=== PATIENT | male | born 1935 | race Caucasian/White ===

== ENCOUNTER 2018-02-08 07:57 | Outpatient (CLI) | payer MEDICARE ==
[2018-02-08 10:46] LABS: BASOPHILS % (AUTO) 0.3 %; EOSINOPHILS # (AUTO) 0.2 10^3/uL (0.0-0.7); EOSINOPHILS % (AUTO) 2.6 %; HGB - HEMOGLOBIN 14.4 g/dL (14.0-18.0); LYMPHOCYTES # (AUTO) 2.3 10^3/uL (1.5-3.5); LYMPHOCYTES % (AUTO) 37.9 %; MEAN CORPUSCULAR HEMOGLOBIN 31.8 pg (27.0-31.0); MEAN CORPUSCULAR HGB CONC 34.8 g/dL (32.0-36.0); MEAN CORPUSCULAR VOLUME 91.4 fL (80.0-94.0); MEAN PLATELET VOLUME 7.6 fL (7.4-11.4); MONOCYTES # (AUTO) 0.4 10^3/uL (0.0-1.0); MONOCYTES % (AUTO) 6.9 %; NEUTROPHILS # (AUTO) 3.2 10^3/uL (1.5-6.6); NEUTROPHILS % (AUTO) 52.3 %; PLT - PLATELET COUNT 169 10^3/uL (130-450); RED BLOOD COUNT 4.53 10^6/uL (4.70-6.10)
[2018-02-08 11:00] LABS: ALBUMIN 4.1 g/dL (3.2-5.5); ALBUMIN/GLOBULIN RATIO 1.3 (1.0-2.2); ALKALINE PHOSPHATASE 65 IU/L (42-121); ALT ALANINE AMINOTRANSFERASE 22 IU/L (10-60); AST ASPARTATE AMINOTRANSFERASE 26 IU/L (10-42); BILIRUBIN,TOTAL 1.1 mg/dL (0.2-1.0); BUN - BLOOD UREA NITROGEN 26 mg/dL (6-20); CALCIUM 9.2 mg/dL (8.5-10.3); CARBON DIOXIDE - CO2 26 mmol/L (21-32); CHLORIDE 103 mmol/L (101-111); CHOLESTEROL 122 mg/dL; GFR - MDRD 72 (>89); GLUCOSE 96 mg/dL (70-100); HDL CHOLESTEROL 41 mg/dL; LDL CHOLESTEROL,CALCULATED 69 mg/dL; LDL/HDL RATIO 1.7 (<3.6); SODIUM 136 mmol/L (135-145); TOTAL PROTEIN 7.3 g/dL (6.7-8.2); VLDL CHOLESTEROL 12 mg/dL
== END 2018-02-08 07:58 | disposition home or self-care (01) ==
LOC: LAB.F 07:57
PROVIDERS: ATTEND Family Medicine
DX: I25.10 Atherosclerotic heart disease of native coronary artery without angina pectoris (principal)
CPT/HCPCS: 36415; 80053; 80061; 83721; 84443; 85025

== ENCOUNTER 2019-02-23 08:11 | Outpatient (CLI) | payer MEDICARE ==
[2019-02-23 11:07] LABS: ALBUMIN 3.9 g/dL (3.2-5.5); ALBUMIN/GLOBULIN RATIO 1.2 (1.0-2.2); ALKALINE PHOSPHATASE 72 IU/L (42-121); ALT ALANINE AMINOTRANSFERASE 24 IU/L (10-60); AST ASPARTATE AMINOTRANSFERASE 28 IU/L (10-42); BILIRUBIN,TOTAL 0.9 mg/dL (0.2-1.0); BUN - BLOOD UREA NITROGEN 29 mg/dL (6-20); CALCIUM 9.3 mg/dL (8.5-10.3); CARBON DIOXIDE - CO2 29 mmol/L (21-32); CHLORIDE 105 mmol/L (101-111); CHOL/HDL RATIO 2.7 (<5.0); CHOLESTEROL 115 mg/dL; GFR - MDRD 71 (>89); GLUCOSE 105 mg/dL (70-100); HDL CHOLESTEROL 42 mg/dL; SODIUM 140 mmol/L (135-145); TOTAL PROTEIN 7.1 g/dL (6.7-8.2)
[2019-02-23 11:20] LABS: BASOPHILS % (AUTO) 0.3 %; EOSINOPHILS # (AUTO) 0.1 10^3/uL (0.0-0.7); EOSINOPHILS % (AUTO) 2.3 %; HGB - HEMOGLOBIN 13.9 g/dL (14.0-18.0); LYMPHOCYTES # (AUTO) 1.8 10^3/uL (1.5-3.5); LYMPHOCYTES % (AUTO) 34.9 %; MEAN CORPUSCULAR HEMOGLOBIN 31.7 pg (27.0-31.0); MEAN CORPUSCULAR HGB CONC 33.9 g/dL (32.0-36.0); MEAN CORPUSCULAR VOLUME 93.5 fL (80.0-94.0); MEAN PLATELET VOLUME 8.1 fL (7.4-11.4); MONOCYTES # (AUTO) 0.3 10^3/uL (0.0-1.0); MONOCYTES % (AUTO) 6.4 %; NEUTROPHILS # (AUTO) 2.9 10^3/uL (1.5-6.6); NEUTROPHILS % (AUTO) 56.1 %; PLT - PLATELET COUNT 180 10^3/uL (130-450); RED BLOOD COUNT 4.38 10^6/uL (4.70-6.10); WHITE BLOOD COUNT 5.2 x10^3/uL (4.8-10.8)
[2019-02-23 11:34] LABS: LDL CHOLESTEROL,DIRECT 66 mg/dL; LDLD/HDL RATIO 1.6 (<3.6)
== END 2019-02-23 08:12 | disposition home or self-care (01) ==
LOC: LAB.F 08:11
PROVIDERS: ATTEND Family Medicine
DX: I25.10 Atherosclerotic heart disease of native coronary artery without angina pectoris (principal)
CPT/HCPCS: 36415; 80053; 80061; 83721; 84443; 85025

== ENCOUNTER 2019-03-04 10:52 | Outpatient (CLI) | payer MEDICARE | END 2019-03-04 10:53 | disposition home or self-care (01) | LOC: LAB.F 10:52 | PROVIDERS: ATTEND Family Medicine | DX: G25.9 Extrapyramidal and movement disorder, unspecified (principal) | CPT/HCPCS: 36415; 82607; 83921 ==

== ENCOUNTER 2019-04-18 07:48 | Outpatient (CLI) | payer MEDICARE | END 2019-04-18 07:49 | disposition home or self-care (01) | LOC: LAB.F 07:48 | PROVIDERS: ATTEND Family Medicine | DX: E53.8 Deficiency of other specified B group vitamins (principal) | CPT/HCPCS: 36415; 82607 ==

== ENCOUNTER 2019-08-11 09:04 | Day surgery (SDC) | payer MEDICARE ==
[2019-08-11] MEDS ORDERED: LACTATED RINGERS 1,000 ML IV ONE (09:37)
[2019-08-11] MEDS ORDERED: fentaNYL 100 MCG/2 ML VIAL IVP ONE (10:10)
[2019-08-11] MEDS ORDERED: MIDAZOLAM 2 MG/2 ML VIAL IVP ONE (10:10)
[2019-08-11 10:51] VITALS: BP 105/59
== END 2019-08-11 09:05 | disposition home or self-care (01) ==
LOC: SDS 09:04
PROVIDERS: ATTEND Surgery
PROC: 0DJD8ZZ Inspection of Lower Intestinal Tract, Via Natural or Artificial Opening Endoscopic (ICD-10-PCS; principal; 2019-08-11 10:30)
DX: Z12.11 Encounter for screening for malignant neoplasm of colon (principal); Z86.010 Personal history of colon polyps; Z80.0 Family history of malignant neoplasm of digestive organs; K64.8 Other hemorrhoids; I10 Essential (primary) hypertension; E66.9 Obesity, unspecified; Z79.899 Other long term (current) drug therapy; Z80.3 Family history of malignant neoplasm of breast; Z87.891 Personal history of nicotine dependence; Z68.34 Body mass index [BMI] 34.0-34.9, adult
CPT/HCPCS: G0105; J7120

== ENCOUNTER 2019-09-04 05:12 | Emergency (ER) | payer MEDICARE ==
[2019-09-04] MEDS ORDERED: ACETAMINOPHEN 325 MG TABLET PO STA (05:37)
[2019-09-04 05:54] VITALS: BP 147/74
[2019-09-04 06:02] LABS: BASOPHILS % (AUTO) 0.2 %; EOSINOPHILS # (AUTO) 0.1 10^3/uL (0.0-0.7); EOSINOPHILS % (AUTO) 1.3 %; HGB - HEMOGLOBIN 13.5 g/dL (14.0-18.0); LYMPHOCYTES # (AUTO) 1.8 10^3/uL (1.5-3.5); LYMPHOCYTES % (AUTO) 33.7 %; MEAN CORPUSCULAR HEMOGLOBIN 31.6 pg (27.0-31.0); MEAN CORPUSCULAR HGB CONC 33.5 g/dL (32.0-36.0); MEAN CORPUSCULAR VOLUME 94.4 fL (80.0-94.0); MEAN PLATELET VOLUME 9.1 fL (7.4-11.4); MONOCYTES # (AUTO) 0.4 10^3/uL (0.0-1.0); NEUTROPHILS # (AUTO) 3.2 10^3/uL (1.5-6.6); NEUTROPHILS % (AUTO) 57.6 %; PLT - PLATELET COUNT 171 10^3/uL (130-450); RED BLOOD COUNT 4.27 10^6/uL (4.70-6.10); RED CELL DISTRIBUTION WIDTH 12.3 % (12.0-15.0); WHITE BLOOD COUNT 5.5 x10^3/uL (4.8-10.8)
[2019-09-04 06:05] LABS: BILIRUBIN,URINE NEGATIVE (NEGATIVE); GLUCOSE, URINE (UA) NEGATIVE (NEGATIVE); KETONES,URINE (UA) NEGATIVE (NEGATIVE); LEUKOCYTE ESTERASE, URINE NEGATIVE (NEGATIVE); NITRITE,URINE NEGATIVE (NEGATIVE); OCCULT BLOOD,URINE NEGATIVE (NEGATIVE); PH,URINE 5.5 PH (5.0-7.5); PROTEIN,URINE NEGATIVE (NEGATIVE); UROBILINOGEN,URINE 0.2 (NORMAL) E.U./dL (NORMAL)
[2019-09-04 06:06] LABS: CLARITY,URINE CLEAR (CLEAR)
[2019-09-04 06:12] LABS: ALBUMIN 3.9 g/dL (3.2-5.5); ALBUMIN/GLOBULIN RATIO 1.2 (1.0-2.2); BILIRUBIN,TOTAL 0.9 mg/dL (0.2-1.0); CALCIUM 9.2 mg/dL (8.5-10.3); CREATININE 0.9 mg/dL (0.6-1.2); TOTAL PROTEIN 7.1 g/dL (6.7-8.2)
--- NOTE | 2019-09-04 06:33 | ED Physician Documentation ---
History of Present Illness - Stated complaint Stated Complaint: LEFT SIDE ADB PX - Chief complaint Chief Complaint: Trauma Ext - History obtained from History obtained from: Patient, Family - History of Present Illness Timing: How many days ago (5) Pain level max: 5 Pain level now: 0 - Additonal information Additional information: 84-year-old male presents to the emergency department stating that his right leg has been stiff. Complaining of pain to the left hip. Worse with movement and better with rest. Especially bad with twisting. No trauma or falls. Review of Systems Constitutional: denies: Fever, Chills Throat: denies: Sore throat Cardiac: denies: Chest pain / pressure Respiratory: denies: Cough GI: denies: Abdominal Pain, Nausea, Vomiting, Diarrhea Skin: denies: Rash Musculoskeletal: denies: Neck pain Neurologic: denies: Headache PD PAST MEDICAL HISTORY - Past Medical History Cardiovascular: Hypertension Respiratory: None Endocrine/Autoimmune: None GI: None, Colon polyps : None HEENT: None Psych: None Musculoskeletal: None Derm: None - Past Surgical History General: Colonoscopy - Present Medications Home Medications: Ambulatory Orders Medication Instructions Recorded Confirmed Aspirin [Low Dose Aspirin EC] 81 mg PO 06/27/13 06/27/13 Losartan [Cozaar] 100 mg PO DAILY 06/27/13 06/27/13 Atorvastatin [Lipitor] 0 mg 08/11/19 - Allergies Allergies/Adverse Reactions: Allergies Allergy/AdvReac Type Severity Reaction Status Date / Time No Known Drug Allergies Allergy Verified 06/27/13 16:03 PD ED PE NORMAL - Vitals Vital signs reviewed: Yes - General General: Alert and oriented X 3, No acute distress - HEENT HEENT: Moist mucous membranes - Neck Neck: Supple, no meningeal sign - Cardiac Cardiac: RRR - Respiratory Respiratory: No respiratory distress, Clear bilaterally - Abdomen Abdomen: Soft, Non tender, Non distended - Back Back: No spinal TTP, Other (No midline tenderness to palpation or percussion. No step-off or deformity. Tender to palpation over left low lumbar. Paraspinal.) - Derm Derm: Warm and dry - Neuro Neuro: Alert and oriented X 3 Results - Vitals Vitals: Vital Signs - 24 hr 09/04/19 09/04/19 05:22 05:52 Temperature 36.6 C Heart Rate 72 70 Respiratory 15 15 Rate Blood Pressure 163/74 H 147/74 H O2 Saturation 98 97 Oxygen O2 Source Room air - Labs Labs: Laboratory Tests 09/04/19 09/04/19 09/04/19 05:50 05:50 06:00 WBC 5.5 RBC 4.27 L Hgb 13.5 L Hct 40.3 L MCV 94.4 H MCH 31.6 H MCHC 33.5 RDW 12.3 Plt Count 171 MPV 9.1 Neut # (Auto) 3.2 Lymph # (Auto) 1.8 [place] # (Auto) 0.4 Eos # (Auto) 0.1 Baso # (Auto) 0.0 Absolute Nucleated RBC 0.00 Nucleated RBC % 0.0 Sodium 140 Potassium 3.9 Chloride 104 Carbon Dioxide 27 Anion Gap 9.0 BUN 28 H Creatinine 0.9 Estimated GFR (MDRD) 80 L Glucose 108 H Calcium 9.2 Total Bilirubin 0.9 AST 24 ALT 20 Alkaline Phosphatase 66 Total Protein 7.1 Albumin 3.9 Globulin 3.2 Albumin/Globulin Ratio 1.2 Lipase 34 Urine Color YELLOW Urine Clarity CLEAR Urine pH 5.5 Ur Specific [place] 1.025 Urine Protein NEGATIVE Urine Glucose (UA) NEGATIVE Urine Ketones NEGATIVE Urine Occult Blood NEGATIVE Urine Nitrite NEGATIVE Urine Bilirubin NEGATIVE Urine Urobilinogen 0.2 (NORMAL) Ur Leukocyte Esterase NEGATIVE Ur Microscopic Review NOT INDICATED Urine Culture Comments NOT INDICATED PD MEDICAL DECISION MAKING - ED course Complexity details: considered differential, d/w patient, d/w family ED course: Patient presents to the emergency department with what appears to be a low lumbar muscle spasm. Worse with movement and palpation. Normal laboratory testing. Normal urinalysis. Feels better after Tylenol. Will encourage gentle stretching at home. Patient and family counseled regarding signs and symptoms for which I believe and urgent re-evaluation would be necessary. Patient with good understanding of and agreement to plan and is comfortable going home at this time This document was made in part using voice recognition software. While efforts are made to proofread this document, sound alike and grammatical errors may occur. Departure - Departure Disposition: 01 Home, Self Care Clinical Impression: Back spasm Condition: Good Instructions: ED Spasm Back No Trauma Follow-Up: Cisco Lazaro MD [Primary Care Provider] - Within 1 week Comments: Return if you worsen. Follow-up with your doctor for further care. Continue gentle stretching at home. Heating pad may help as well. Discharge Date/Time: 09/04/19 06:45
== END 2019-09-04 06:45 | disposition home or self-care (01) ==
LOC: ED 05:12
DX: M62.830 Muscle spasm of back (principal); I10 Essential (primary) hypertension
CPT/HCPCS: 36415; 80053; 81003; 83690; 85025; 99283; 99284; A9270; 81001; 87086

== ENCOUNTER 2020-06-14 20:48 | Emergency (ER) | payer MEDICARE ==
[2020-06-14 21:50] LABS: BILIRUBIN,URINE NEGATIVE (NEGATIVE); GLUCOSE, URINE (UA) NEGATIVE (NEGATIVE); KETONES,URINE (UA) NEGATIVE (NEGATIVE); LEUKOCYTE ESTERASE, URINE TRACE (NEGATIVE); NITRITE,URINE NEGATIVE (NEGATIVE); OCCULT BLOOD,URINE NEGATIVE (NEGATIVE); PH,URINE 5.5 PH (5.0-7.5); PROTEIN,URINE NEGATIVE (NEGATIVE); UROBILINOGEN,URINE 0.2 (NORMAL) E.U./dL (NORMAL)
[2020-06-14 21:52] LABS: CLARITY,URINE CLEAR (CLEAR)
[2020-06-14 22:05] LABS: BACTERIA,URINE Rare /HPF (None Seen); CASTS, URINE 0-2 Hyaline Casts /LPF; RBC,URINE None Seen /HPF (0-5); SQUAMOUS EPITHELIAL CELL,UR RARE Squamous (<= Few)
[2020-06-14 22:17] LABS: BASOPHILS % (AUTO) 0.3 %; EOSINOPHILS # (AUTO) 0.1 10^3/uL (0.0-0.7); EOSINOPHILS % (AUTO) 1.9 %; HGB - HEMOGLOBIN 14.4 g/dL (14.0-18.0); LYMPHOCYTES # (AUTO) 2.5 10^3/uL (1.5-3.5); LYMPHOCYTES % (AUTO) 34.5 %; MEAN CORPUSCULAR HEMOGLOBIN 32.6 pg (27.0-31.0); MEAN CORPUSCULAR HGB CONC 34.5 g/dL (32.0-36.0); MEAN CORPUSCULAR VOLUME 94.3 fL (80.0-94.0); MEAN PLATELET VOLUME 9.2 fL (7.4-11.4); MONOCYTES # (AUTO) 0.6 10^3/uL (0.0-1.0); MONOCYTES % (AUTO) 7.5 %; NEUTROPHILS # (AUTO) 4.1 10^3/uL (1.5-6.6); NEUTROPHILS % (AUTO) 55.4 %; PLT - PLATELET COUNT 171 10^3/uL (130-450); RED BLOOD COUNT 4.42 10^6/uL (4.70-6.10); RED CELL DISTRIBUTION WIDTH 12.5 % (12.0-15.0); WHITE BLOOD COUNT 7.3 x10^3/uL (4.8-10.8)
[2020-06-14 22:31] LABS: ALBUMIN 4.6 g/dL (3.2-5.5); ALBUMIN/GLOBULIN RATIO 1.3 (1.0-2.2); BILIRUBIN,TOTAL 0.7 mg/dL (0.2-1.0); CALCIUM 9.7 mg/dL (8.5-10.3); CREATININE 1.1 mg/dL (0.6-1.2); TOTAL PROTEIN 8.2 g/dL (6.7-8.2)
[2020-06-14] MEDS ORDERED: IOVERSOL 320 100 ML VIAL IVP ONE ×2 (23:15→23:53)
--- NOTE | 2020-06-15 01:00 | ED Physician Documentation ---
PD HPI ABD PAIN - Stated complaint Stated Complaint: LOW RT SIDE PX - Chief complaint Chief Complaint: Abd Pain - History obtained from History obtained from: Patient - Additional information Additional information: Patient comes emergency department complaining of right lower quadrant abdominal pain for the last couple of days. He states that it first, he thought that he just pulled a muscle, but that the pain is gotten somewhat worse. He states it is not very bad, but he wants to make sure it is not appendicitis. Patient denies any nausea or vomiting. No diarrhea or other stool changes. No dysuria or hematuria. Other complaints at this time. Review of Systems Ten Systems: 10 systems reviewed and negative Constitutional: reports: Reviewed and negative Eyes: reports: Reviewed and negative Ears: reports: Reviewed and negative Nose: reports: Reviewed and negative Throat: reports: Reviewed and negative Cardiac: reports: Reviewed and negative Respiratory: reports: Reviewed and negative GI: reports: Abdominal Pain : reports: Reviewed and negative Skin: reports: Reviewed and negative Musculoskeletal: reports: Reviewed and negative Neurologic: reports: Reviewed and negative Psychiatric: reports: Reviewed and negative Endocrine: reports: Reviewed and negative Immunocompromised: reports: Reviewed and negative PD PAST MEDICAL HISTORY - Past Medical History Past Medical History: Yes Cardiovascular: Hypertension, High cholesterol Respiratory: None Neuro: Parkinson's Endocrine/Autoimmune: None GI: Colon polyps : None HEENT: None Psych: None Musculoskeletal: None Derm: None - Past Surgical History Past Surgical History: Yes General: Colonoscopy - Present Medications Home Medications: Ambulatory Orders Medication Instructions Recorded Confirmed Aspirin [Low Dose Aspirin EC] 81 mg PO 06/27/13 06/27/13 Losartan [Cozaar] 100 mg PO DAILY 06/27/13 06/27/13 Atorvastatin [Lipitor] 0 mg 08/11/19 - Allergies Allergies/Adverse Reactions: Allergies Allergy/AdvReac Type Severity Reaction Status Date / Time sildenafil [From Viagra] Allergy Unknown Verified 06/14/20 21:07 - Social History Does the pt smoke?: No Smoking Status: Never smoker Does the pt drink ETOH?: Yes ETOH Use: Wine Does the pt have substance abuse?: No - Immunizations Immunizations are current?: No Immunizations: TDAP >10years/unknown - POLST Patient has POLST: Yes PD ED PE NORMAL - Vitals Vital signs reviewed: Yes - General General: Alert and oriented X 3, No acute distress, Well developed/nourished - HEENT HEENT: Atraumatic, PERRL, EOMI, Moist mucous membranes - Neck Neck: Supple, no meningeal sign - Cardiac Cardiac: RRR, No murmur - Respiratory Respiratory: No respiratory distress, Clear bilaterally - Abdomen Abdomen: Soft, Non distended, Other (Mild tenderness over the lateral aspect of the right lower quadrant, just medial to the anterior aspect of the iliac crest. No rebound or guarding.) - Back Back: No CVA TTP - Derm Derm: Normal color, Warm and dry, No rash - Extremities Extremities: No deformity - Neuro Neuro: Alert and oriented X 3 - Psych Psych: Normal mood, Normal affect Results - Vitals Vitals: Vital Signs - 24 hr 06/14/20 06/14/20 06/14/20 21:04 21:47 23:18 Temperature 36.7 C Heart Rate 68 71 74 Respiratory 18 17 Rate Blood Pressure 145/62 H 152/65 H 152/64 H O2 Saturation 96 96 97 06/15/20 06/15/20 00:24 01:02 Temperature Heart Rate 76 74 Respiratory 16 16 Rate Blood Pressure 139/73 H 159/79 H O2 Saturation 96 93 Oxygen O2 Source Room air - Labs Labs: Laboratory Tests 06/14/20 06/14/20 06/14/20 21:43 22:10 22:10 WBC 7.3 RBC 4.42 L Hgb 14.4 Hct 41.7 L MCV 94.3 H MCH 32.6 H MCHC 34.5 RDW 12.5 Plt Count 171 MPV 9.2 Neut # (Auto) 4.1 Lymph # (Auto) 2.5 [place] # (Auto) 0.6 Eos # (Auto) 0.1 Baso # (Auto) 0.0 Absolute Nucleated RBC 0.00 Nucleated RBC % 0.0 Sodium 140 Potassium 4.0 Chloride 98 L Carbon Dioxide 28 Anion Gap 14.0 H BUN 27 H Creatinine 1.1 Estimated GFR (MDRD) 64 L Glucose 107 H Calcium 9.7 Total Bilirubin 0.7 AST 34 ALT 10 Alkaline Phosphatase 91 Total Protein 8.2 Albumin 4.6 Globulin 3.6 Albumin/Globulin Ratio 1.3 Lipase 32 Urine Color YELLOW Urine Clarity CLEAR Urine pH 5.5 Ur Specific [place] 1.025 Urine Protein NEGATIVE Urine Glucose (UA) NEGATIVE Urine Ketones NEGATIVE Urine Occult Blood NEGATIVE Urine Nitrite NEGATIVE Urine Bilirubin NEGATIVE Urine Urobilinogen 0.2 (NORMAL) Ur Leukocyte Esterase TRACE H Urine RBC None Seen Urine WBC 0-3 Ur Squamous Epith Cells RARE Squamous Urine Bacteria Rare Urine Casts 0-2 Hyaline Casts Ur Microscopic Review INDICATED Urine Culture Comments INDICATED - Rads (name of study) CT abd/pelvis Radiology: Prelim report reviewed, EMP read indepedently, See rad report (No appendicitis; small hiatal hernia; left inguinal hernia containing fat; dense feces throughout colon.) PD MEDICAL DECISION MAKING - ED course Complexity details: reviewed old records, reviewed results, re-evaluated patient, considered differential, d/w patient ED course: The patient was worked up with labs, which were unremarkable, and a CT scan of the abdomen and pelvis. He declined any analgesia. CT showed left-sided hernias, both hiatal and inguinal, but no right-sided findings. Patient was found to have a large amount of stool in his colon and I did discuss with patient and his that this could be part of the reason for his discomfort. The patient has not had any direct trauma to cause a muscle strain, but a muscular etiology is also possibility. Either way, there is no evidence of s erious organ abnormality, and I feel patient stable for discharge home. I discussed the usual indications for return. Departure - Departure Disposition: 01 Home, Self Care Clinical Impression: Abdominal pain Qualifiers: Abdominal location: right lower quadrant Qualified Code(s): R10.31 - Right lower quadrant pain Condition: Stable Instructions: ED Abdominal Pain Unkn Cause Comments: Your CT scan shows a small, fat-containing left inguinal hernia, which is in your left groin. You also have a large amount of stool throughout your entire large intestine. This could be the cause of your feeling of pain in the right lower abdomen. There is no evidence of appendicitis at this time. No other organ abnormalities, though your prostate is slightly enlarged. Please be sure to eat a high-fiber diet. You may use stool softeners if needed to help clear your bowels. Please follow-up with your primary care physician for further concerns. Discharge Date/Time: 06/15/20 01:11
[2020-06-15 01:03] VITALS: BP 159/79
--- NOTE | 2020-06-15 10:15 | CT Report ---
PROCEDURE: Abdomen/Pelvis W INDICATIONS: RLQ abd pain CONTRAST: IV CONTRAST: Optiray 320 ml: 100 PO CONTRAST: *NO PO CONTRAST TECHNIQUE: After the administration of oral and intravenous contrast, 5 mm thick sections acquired from the diap hragms to the symphysis. 5 mm thick coronal and sagittal reformats were acquired. For radiation dos e reduction, the following was used: automated exposure control, adjustment of mA and/or kV accordin g to patient size. COMPARISON: None. FINDINGS: Image quality: Excellent. ABDOMEN: Lung bases: Lung bases are clear. Heart size is normal. Solid organs: Liver and spleen are normal in size and enhancement. Gallbladder is unremarkable. Bi liary system is non dilated. Pancreas enhances normally. No adrenal nodules. Kidneys demonstrate n ormal size and enhancement, without hydronephrosis. Left renal cyst. Peritoneum and bowel: Bowel loops demonstrate normal wall thickness and caliber. No free fluid or a ir. Appendix is unremarkable. Nodes and vessels: No retroperitoneal or mesenteric adenopathy by size criteria. Aorta demonstrates significant aortic wall calcifications, with luminal narrowing. Miscellaneous: No ventral hernias. PELVIS: Genitourinary: Bladder wall thickness is normal. Miscellaneous: Left fat containing inguinal hernia. Bones: No suspicious bony lesions. No vertebral body compression fractures. IMPRESSION: 1. Appendix is unremarkable. No visualized cause of acute pelvic process. The above findings are concordant with preliminary report. Reviewed by: Shantell Loyola MD on 06/15/2020 10:14 AM PDT Approved by: Shantell Loyola MD on 06/15/2020 10:14 AM PDT Station ID: [id number]
== END 2020-06-15 01:11 | disposition home or self-care (01) ==
LOC: ED 20:48
DX: R10.31 Right lower quadrant pain (principal); K40.90 Unilateral inguinal hernia, without obstruction or gangrene, not specified as recurrent; K44.9 Diaphragmatic hernia without obstruction or gangrene; I10 Essential (primary) hypertension; G20 Parkinson's disease; Z79.82 Long term (current) use of aspirin
CPT/HCPCS: 36415; 74177; 80053; 81001; 83690; 85025; 87086; 99284; Q9967; 81003

== ENCOUNTER 2021-01-11 08:41 | Outpatient (CLI) | payer MEDICARE ==
[2021-01-11 15:52] LABS: BASOPHILS % (AUTO) 0.4 %; EOSINOPHILS # (AUTO) 0.2 10^3/uL (0.0-0.7); EOSINOPHILS % (AUTO) 2.6 %; HGB - HEMOGLOBIN 13.6 g/dL (14.0-18.0); LYMPHOCYTES # (AUTO) 1.9 10^3/uL (1.5-3.5); LYMPHOCYTES % (AUTO) 32.4 %; MEAN CORPUSCULAR HEMOGLOBIN 31.9 pg (27.0-31.0); MEAN CORPUSCULAR HGB CONC 33.2 g/dL (32.0-36.0); MEAN CORPUSCULAR VOLUME 96.2 fL (80.0-94.0); MEAN PLATELET VOLUME 9.3 fL (7.4-11.4); MONOCYTES # (AUTO) 0.4 10^3/uL (0.0-1.0); NEUTROPHILS # (AUTO) 3.3 10^3/uL (1.5-6.6); NEUTROPHILS % (AUTO) 57.4 %; PLT - PLATELET COUNT 184 10^3/uL (130-450); RED BLOOD COUNT 4.26 10^6/uL (4.70-6.10); RED CELL DISTRIBUTION WIDTH 12.3 % (12.0-15.0); WHITE BLOOD COUNT 5.7 x10^3/uL (4.8-10.8)
[2021-01-11 16:23] LABS: ALBUMIN 4.1 g/dL (3.2-5.5); ALBUMIN/GLOBULIN RATIO 1.3 (1.0-2.2); ALKALINE PHOSPHATASE 70 IU/L (42-121); ALT ALANINE AMINOTRANSFERASE < 10 IU/L (10-60); AST ASPARTATE AMINOTRANSFERASE 30 IU/L (10-42); BUN - BLOOD UREA NITROGEN 29 mg/dL (6-20); CALCIUM 9.4 mg/dL (8.5-10.3); CARBON DIOXIDE - CO2 27 mmol/L (21-32); CHLORIDE 101 mmol/L (101-111); CHOL/HDL RATIO 2.5 (<5.0); CHOLESTEROL 114 mg/dL; CREATININE 1.1 mg/dL (0.6-1.2); GFR - MDRD 64 (>89); GLUCOSE 103 mg/dL (70-100); HDL CHOLESTEROL 46 mg/dL; LDL CHOLESTEROL,CALCULATED 59 mg/dL; LDL/HDL RATIO 1.3 (<3.6); POTASSIUM 3.9 mmol/L (3.5-5.0); SODIUM 137 mmol/L (135-145); TOTAL PROTEIN 7.3 g/dL (6.7-8.2); TRIGLYCERIDES 47 mg/dL; VLDL CHOLESTEROL 9 mg/dL
[2021-01-11 16:29] LABS: THYROID STIMULATING HORMONE 1.93 uIU/mL (0.34-5.60)
== END 2021-01-11 08:42 | disposition home or self-care (01) ==
LOC: LAB.S 08:41
PROVIDERS: ATTEND Internal Medicine
DX: I25.10 Atherosclerotic heart disease of native coronary artery without angina pectoris (principal); E53.8 Deficiency of other specified B group vitamins; D64.9 Anemia, unspecified
CPT/HCPCS: 36415; 80053; 80061; 82607; 83721; 84443; 85025

== ENCOUNTER 2021-01-16 10:56 | Emergency (ER) | payer MEDICARE ==
[2021-01-16] MEDS ORDERED: KETOROLAC 60 MG/2 ML VIAL IM STA (11:25)
[2021-01-16] MEDS ORDERED: HYDROcod/ACETAM 5/325 MG TABLET PO STA ×2 (11:58→16:01)
--- NOTE | 2021-01-16 12:25 | XRAY Report ---
PROCEDURE: Lumbar Spine 2 View INDICATIONS: Back pain status post fall TECHNIQUE: 2 views of the lumbar spine were acquired. COMPARISON: None. FINDINGS: Limited exam due to patient positioning and body habitus. Vertebral body heights are maintained with no plain radiographic evidence of fracture. IMPRESSION: Limited exam without plain radiographic evidence of lumbar spine fracture. Low threshold for cross-sectional imaging recommended if there is point tenderness or other clinical evidence of f racture. Reviewed by: Capo Butler MD on 01/16/2021 12:23 PM PDT Approved by: Capo Butler MD on 01/16/2021 12:23 PM PDT Station ID: [id number]
--- NOTE | 2021-01-16 12:39 | CT Report ---
PROCEDURE: HEAD WO INDICATIONS: fall/head injury/LOC TECHNIQUE: Noncontrast 4.5 mm thick angled axial sections acquired from the foramen magnum to the vertex. For r adiation dose reduction, the following was used: automated exposure control, adjustment of mA and/or kV according to patient size. COMPARISON: None. FINDINGS: Image quality: Excellent. CSF spaces: Basal cisterns are patent. No extra-axial fluid collections. Ventricles are normal in size and shape. Brain: High density material in the right occipital horn is favored to represent intraventricular hem orrhage. No evidence of intracranial hemorrhage elsewhere. Skull and face: Calvarium and visualized facial bones are intact, without suspicious lesions. Sinuses: Visualized sinuses and mastoids are clear. IMPRESSION: High density material in the posterior right occipital horn. This could potentially represent an atyp ical appearance of intraventricular hemorrhage, although amorphous calcification of the choroid in th is region which cause similar imaging findings. Short interval follow-up is recommended to help diffe rentiate. Reviewed by: Capo Butler MD on 01/16/2021 12:37 PM PDT Approved by: Capo Butler MD on 01/16/2021 12:37 PM PDT Station ID: [id number]
[2021-01-16 13:31] LABS: BASOPHILS % (AUTO) 0.1 %; EOSINOPHILS % (AUTO) 0.1 %; HCT - HEMATOCRIT 37.9 % (42.0-52.0); HGB - HEMOGLOBIN 13.1 g/dL (14.0-18.0); LYMPHOCYTES # (AUTO) 1.5 10^3/uL (1.5-3.5); LYMPHOCYTES % (AUTO) 14.3 %; MEAN CORPUSCULAR HEMOGLOBIN 32.7 pg (27.0-31.0); MEAN CORPUSCULAR HGB CONC 34.6 g/dL (32.0-36.0); MEAN CORPUSCULAR VOLUME 94.5 fL (80.0-94.0); MEAN PLATELET VOLUME 8.9 fL (7.4-11.4); MONOCYTES # (AUTO) 0.7 10^3/uL (0.0-1.0); MONOCYTES % (AUTO) 6.7 %; NEUTROPHILS # (AUTO) 8.3 10^3/uL (1.5-6.6); NEUTROPHILS % (AUTO) 78.4 %; PLT - PLATELET COUNT 171 10^3/uL (130-450); RED BLOOD COUNT 4.01 10^6/uL (4.70-6.10); RED CELL DISTRIBUTION WIDTH 12.3 % (12.0-15.0); WHITE BLOOD COUNT 10.5 x10^3/uL (4.8-10.8)
[2021-01-16 13:37] LABS: INR 1.2 (0.8-1.2); PT - PROTHROMBIN TIME 13.5 secs (9.9-12.6)
[2021-01-16 13:44] LABS: ALBUMIN/GLOBULIN RATIO 1.3 (1.0-2.2); CALCIUM 9.9 mg/dL (8.5-10.3); CREATININE 1.1 mg/dL (0.6-1.2); POTASSIUM 3.9 mmol/L (3.5-5.0); TOTAL PROTEIN 7.1 g/dL (6.7-8.2)
--- NOTE | 2021-01-16 15:53 | ED Physician Documentation ---
PD HPI HEAD INJURY - Stated complaint Stated Complaint: FALL - Chief complaint Chief Complaint: Trauma Hd/Nk - History obtained from History obtained from: Patient, Family - Additional information Additional information: Patient presents to the emergency department with chief complaint of fall last night and back pain today. He states he was going up his stairs when he lost his balance and fell, striking his head on something. He is not sure what, but he was unconscious for couple of minutes according to . She states she heard a terrific crash and found the patient had knocked over a metal tray that has some glass mathews on it in the process of falling. The patient was lying in the position on the landing of the stairs and said she could not arouse him for about a minute after she arrived on scene. She states the patient then began to arouse and began shouting for her not to call 911. She helped him down stairs and patient states he does not remember anything until b eing at the bottom of the stairs. He states that he went and laid down and was able to sleep through the night. When he woke up today, he denies feeling dizzy or having a headache or any visual changes or other focal deficits, but states he did notice some lumbar back pain. He states that he notices it's worse whenever he tries to sit up or turns in the bed. Patient denies any bowel or bladder loss of control. He denies any other complaints at this time. No neck pain. states she noticed a "lump" and an abrasion on the back of the patient's head. Review of Systems Ten Systems: 10 systems reviewed and negative Constitutional: reports: Reviewed and negative Eyes: reports: Reviewed and negative Ears: reports: Reviewed and negative Nose: reports: Reviewed and negative Throat: reports: Reviewed and negative Cardiac: reports: Reviewed and negative Respiratory: reports: Reviewed and negative GI: reports: Reviewed and negative : reports: Reviewed and negative Skin: reports: Reviewed and negative Musculoskeletal: reports: Back pain Neurologic: reports: Head injury, LOC Psychiatric: reports: Reviewed and negative Endocrine: reports: Reviewed and negative Immunocompromised: reports: Reviewed and negative PD PAST MEDICAL HISTORY - Past Medical History Cardiovascular: Hypertension, High cholesterol Respiratory: None Neuro: Parkinson's Endocrine/Autoimmune: None GI: Colon polyps : None HEENT: None Psych: None Musculoskeletal: None Derm: None - Past Surgical History Past Surgical History: Yes General: Colonoscopy - Present Medications Home Medications: Ambulatory Orders Medication Instructions Recorded Confirmed Aspirin [Low Dose Aspirin EC] 81 mg PO 06/27/13 06/27/13 Losartan [Cozaar] 100 mg PO DAILY 06/27/13 06/27/13 Atorvastatin [Lipitor] 0 mg 08/11/19 HYDROcod/ACETAM 5/325 [[place] 5/325] 1 - 2 ea PO Q6H PRN #15 tablet 01/16/21 - Allergies Allergies/Adverse Reactions: Allergies Allergy/AdvReac Type Severity Reaction Status Date / Time sildenafil [From Viagra] Allergy Unknown Verified 01/16/21 10:59 - Social History Does the pt smoke?: No Smoking Status: Never smoker Does the pt drink ETOH?: Yes Does the pt have substance abuse?: No - Immunizations Immunizations are current?: No Immunizations: TDAP >10years/unknown - POLST Patient has POLST: Yes PD ED PE NORMAL - Vitals Vital signs reviewed: Yes - General General: Alert and oriented X 3, No acute distress - HEENT HEENT: PERRL - Neck Neck: Supple, no meningeal sign - Cardiac Cardiac: RRR, No murmur - Respiratory Respiratory: Clear bilaterally - Abdomen Abdomen: Soft, Non tender, Non distended - Derm Derm: Warm and dry - Extremities Extremities: No deformity - Neuro Neuro: Alert and oriented X 3 - Psych Psych: Normal mood, Normal affect Results - Vitals Vitals: Oxygen O2 Source Room air - Labs Labs: Laboratory Tests 01/16/21 01/16/21 01/16/21 13:26 13:26 13:26 WBC 10.5 RBC 4.01 L Hgb 13.1 L Hct 37.9 L MCV 94.5 H MCH 32.7 H MCHC 34.6 RDW 12.3 Plt Count 171 MPV 8.9 Neut # (Auto) 8.3 H Lymph # (Auto) 1.5 [place] # (Auto) 0.7 Eos # (Auto) 0.0 Baso # (Auto) 0.0 Absolute Nucleated RBC 0.00 Nucleated RBC % 0.0 PT 13.5 H INR 1.2 Sodium 140 Potassium 3.9 Chloride 103 Carbon Dioxide 24 Anion Gap 13.0 BUN 34 H Creatinine 1.1 Estimated GFR (MDRD) 64 L Glucose 118 H Calcium 9.9 Total Bilirubin 1.0 AST 42 ALT 47 Alkaline Phosphatase 65 Total Protein 7.1 Albumin 4.0 Globulin 3.1 Albumin/Globulin Ratio 1.3 - Rads (name of study) CT head Radiology: Final report received, EMP read indepedently, See rad report (hemorrhage in R occipital horn vs choroid calcification) REpeat CT head Radiology: Final report received, EMP read indepedently, See rad report (Unchanged findings) XR lumbar spine Radiology: Final report received, EMP read indepedently, See rad report (DJD. No obvious acute findings.) PD MEDICAL DECISION MAKING - ED course Complexity details: reviewed old records, reviewed results, re-evaluated patient, considered differential, d/w patient, d/w family ED course: Pt was initially worked up with CT head and XR lumbar spine. XR showed DJD. CT showed possible bleed vs choroid calcification in the R horn of lateral ventricle. Pt had no neurologic sx, and remained stable in the ED. I discussed the case with Dr. Whatley, who was on-call for neurosurgery at [facility]. He recommended a repeat CT at 5-6 hours from the first one. If the area was unchanged, it would be most likely calcification, and pt could be discharged home. However, he recommended that pt hold his aspirin for a week. CT was repeated as recommended, and showed no change. Pt was stable in the ED. He had received 2 tabs of Vicodin during his stay to help with his back pain, and was feeling better. Case was discussed with his , who was also present. We have discussed the usual indications for return. Departure - Departure Disposition: 01 Home, Self Care Clinical Impression: Closed head injury Qualifiers: Encounter type: initial encounter Qualified Code(s): S09.90XA - Unspecified injury of head, initial encounter Low back strain Qualifiers: Encounter type: initial encounter Qualified Code(s): S39.012A - Strain of muscle, fascia and tendon of lower back, initial encounter Condition: Stable Instructions: ED Low Back Pain Injury, ED Head Injury Closed Prescriptions: HYDROcod/ACETAM 5/325 [[place] 5/325] 1 - 2 ea PO Q6H PRN #15 tablet PRN Reason: Pain Comments: Your back x-ray shows arthritic changes, but no acute broken bones. Your initial CT scan showed a finding that was concerning for possible bleeding from your brain. The case was discussed with Dr. Whatley of neurosurgery at [facility], and he recommended a repeat CT in 5 to [address] scan was done about 6 h after your initial scan, and this did not show any change in the area of question. As such, the radiologist feels that this is very unlikely to represent bleeding and most likely to represent chronic calcium buildup within that space in your brain. This is not an unusual finding in the fluid-filled structures of the brain, though it usually has a slightly different appearance. You may take the pain medication as needed for your back. Please be sure you drink plenty of fluids. You may use a walker as needed to help you get around until your back is feeling better and you're more steady on your feet. Discharge Date/Time: 01/16/21 18:50
--- NOTE | 2021-01-16 17:50 | CT Report ---
PROCEDURE: HEAD WO INDICATIONS: repeat re: possible hemorrhage TECHNIQUE: Noncontrast 4.5 mm thick angled axial sections acquired from the foramen magnum to the vertex. For r adiation dose reduction, the following was used: automated exposure control, adjustment of mA and/or kV according to patient size. COMPARISON: Same day head CT FINDINGS: Hyperdense focus in the right occipital horn is unchanged in size, appearance, and density when riley red with the prior study. IMPRESSION: Unchanged hyperdense focus in the right occipital horn. Given the lack of interval mahan e over a is greater than 5 hour interval, this is unlikely to represent acute blood products. Calcifi ed choroid plexus is favored. Reviewed by: Capo Butler MD on 01/16/2021 5:48 PM PDT Approved by: Capo Butler MD on 01/16/2021 5:48 PM PDT Station ID: [id number]
[2021-01-16 18:20] VITALS: BP 148/65
== END 2021-01-16 18:50 | disposition home or self-care (01) ==
LOC: ED 10:56
DX: S06.9X1A Unspecified intracranial injury with loss of consciousness of 30 minutes or less, initial encounter (principal); S39.012A Strain of muscle, fascia and tendon of lower back, initial encounter; S00.01XA Abrasion of scalp, initial encounter; W10.9XXA Fall (on) (from) unspecified stairs and steps, initial encounter; Y93.01 Activity, walking, marching and hiking; Y92.009 Unspecified place in unspecified non-institutional (private) residence as the place of occurrence of the external cause; M47.816 Spondylosis without myelopathy or radiculopathy, lumbar region; I10 Essential (primary) hypertension; G20 Parkinson's disease; Z79.82 Long term (current) use of aspirin
CPT/HCPCS: 36415; 70450; 72100; 80053; 85025; 85610; 96372; 99284; A9270

== ENCOUNTER 2022-08-29 08:22 | Outpatient (CLI) | payer MEDICARE ==
[2022-08-29 14:46] LABS: BASOPHILS % (AUTO) 0.3 %; EOSINOPHILS # (AUTO) 0.2 10^3/uL (0.0-0.7); EOSINOPHILS % (AUTO) 3.8 %; HCT - HEMATOCRIT 38.2 % (42.0-52.0); HGB - HEMOGLOBIN 12.6 g/dL (14.0-18.0); LYMPHOCYTES # (AUTO) 1.7 10^3/uL (1.5-3.5); LYMPHOCYTES % (AUTO) 26.4 %; MEAN CORPUSCULAR HEMOGLOBIN 32.6 pg (27.0-31.0); MEAN PLATELET VOLUME 9.5 fL (7.4-11.4); MONOCYTES # (AUTO) 0.5 10^3/uL (0.0-1.0); MONOCYTES % (AUTO) 7.3 %; NEUTROPHILS # (AUTO) 3.9 10^3/uL (1.5-6.6); NEUTROPHILS % (AUTO) 61.9 %; PLT - PLATELET COUNT 190 10^3/uL (130-450); RED BLOOD COUNT 3.86 10^6/uL (4.70-6.10); RED CELL DISTRIBUTION WIDTH 13.3 % (12.0-15.0); WHITE BLOOD COUNT 6.3 x10^3/uL (4.8-10.8)
[2022-08-29 15:20] LABS: ALBUMIN/GLOBULIN RATIO 1.4 (1.0-2.2); ALKALINE PHOSPHATASE 79 IU/L (42-121); ALT ALANINE AMINOTRANSFERASE < 10 IU/L (10-60); AST ASPARTATE AMINOTRANSFERASE 27 IU/L (10-42); BILIRUBIN,TOTAL 0.8 mg/dL (0.2-1.0); BUN - BLOOD UREA NITROGEN 30 mg/dL (6-20); CALCIUM 9.6 mg/dL (8.5-10.3); CARBON DIOXIDE - CO2 27 mmol/L (21-32); CHLORIDE 104 mmol/L (101-111); CHOL/HDL RATIO 2.5 (<5.0); CHOLESTEROL 114 mg/dL; GFR - MDRD 71 (>89); GLUCOSE 100 mg/dL (70-100); HDL CHOLESTEROL 46 mg/dL; SODIUM 138 mmol/L (135-145); TOTAL PROTEIN 6.8 g/dL (6.7-8.2); TRIGLYCERIDES 32 mg/dL
== END 2022-08-29 08:23 | disposition home or self-care (01) ==
LOC: LAB.S 08:22
PROVIDERS: ATTEND Internal Medicine
DX: I10 Essential (primary) hypertension (principal); E78.5 Hyperlipidemia, unspecified; E53.8 Deficiency of other specified B group vitamins
CPT/HCPCS: 36415; 80053; 80061; 82607; 83721; 85025

== ENCOUNTER 2022-09-01 17:19 | Outpatient (CLI) | payer MEDICARE ==
--- NOTE | 2022-09-02 08:30 | XRAY Report ---
PROCEDURE: Ankle 3 View RT INDICATIONS: R ANKLE PAIN TECHNIQUE: 3 views of the ankle were acquired. COMPARISON: 05/15/2016 FINDINGS: Bones: No fractures or dislocations. Osteoarthritic changes are noted in midfoot and hindfoot joints with joint space narrowing, subchondral sclerosis and small marginal osteophyte formation. Ankle mo rtise is normally aligned. No suspicious bony lesions. Soft tissues: No tibiotalar joint effusion. Achilles tendon appears normal. IMPRESSION: Midfoot and hindfoot joint osteoarthritis. No fracture or dislocation. Ankle mortise is congruent. Reviewed by: Luis Alberto Lynn MD on 09/02/2022 8:29 AM PDT Approved by: Luis Alberto Lynn MD on 09/02/2022 8:29 AM PDT Station ID: [id number]
--- NOTE | 2022-09-02 08:31 | XRAY Report ---
PROCEDURE: Hips 2V BILAT INDICATIONS: HIP PAIN TECHNIQUE: 3 views of the hip were acquired. COMPARISON: None FINDINGS: Bones: No fractures or dislocations. Moderate bilateral hip joint osteoarthritic changes are seen wi th joint space narrowing, subchondral sclerosis and small marginal osteophyte formation. No evidence of avascular necrosis of femoral head. No suspicious bony lesions. The visualized pelvic ring appear s intact. 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 Soft tissues: No suspicious soft tissue calcifications or masses. 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 No hip fracture or dislocation. No e vidence of avascular necrosis. Reviewed by: Luis Alberto Lynn MD on 09/02/2022 8:30 AM PDT Approved by: Luis Alberto Lynn MD on 09/02/2022 8:30 AM PDT Station ID: [id number]
== END 2022-09-01 17:20 | disposition home or self-care (01) ==
LOC: DI 17:19
PROVIDERS: ATTEND Internal Medicine
DX: M19.071 Primary osteoarthritis, right ankle and foot (principal); M16.0 Bilateral primary osteoarthritis of hip

== ENCOUNTER 2022-09-08 15:49 | Outpatient (CLI) | payer MEDICARE ==
--- NOTE | 2022-09-08 17:55 | MRI Report ---
PROCEDURE: KNEE WO - RT INDICATIONS: ARTHRITIS RIGHT KNEE TECHNIQUE: Noncontrast sagittal PD fast spin echo and T2 fast spin echo with fat saturation, sagittal 3-D gradie nt sequence with fat saturation; coronal T1 spin echo and PD fast spin echo with fat saturation, and axial PD fast spin echo with fat saturation through the knee. COMPARISON: Radiograph 06/20/2022 FINDINGS: Image quality: Motion degraded Menisci Medial: Complex tear of the body and posterior horn, particularly involving the free edge and undersu rface. Mild extrusion. Lateral: There is truncation at the Noble meniscal femoral ligament. The meniscal popliteal fascic les are intact. Complex tear of the body involving the free edge. Cruciate ligaments: Suspected ACL mucoid degeneration. PCL is intact. Medial structures MCL: Intact Pes anserine tendons: Intact Semimembranosus: Suspected insertional tendinopathy. Lateral structures LCL: Mild high signal at the fibular insertion. Biceps femoris: Insertional tendinopathy IT band: Intact Popliteus tendon: Insertional tendinopathy and tenosynovitis of the tendon Anterior structures Extensor mechanism: Edema surrounds the patellar tendon. There is also edema at the patellar insertio n. Patellar enthesopathic changes and prepatellar edema. Fat pads: Mild Hoffa's fat pad edema. Medial retinaculum: Intact. Trochlea: Unremarkable morphology. Bone and joint Bones: No fracture, dislocation, or suspicious edema Cartilage: Overall mild to moderate chondromalacia particularly involving the patellar cartilage and medial compartment with areas of partial-thickness loss. No marrow edema. Joint space: Small joint effusion. Suspected synovitis. Rhodes's cyst: Tiny Rhodes's cyst. Soft tissues: There is subcutaneous edema. IMPRESSION: Complex tears of both the medial and lateral menisci as above. Suspected mucoid degeneration of the d istal ACL. Suspected sprain/tendinopathy of the combined LCL biceps femoris fibular head insertion. There is als o suspected tendinopathy and tenosynovitis of the popliteus tendon. 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 No focal marrow edema. Reviewed by: Saeed Varner MD on 09/08/2022 5:53 PM PST Approved by: Saeed Varner MD on 09/08/2022 5:53 PM PST Station ID: [id number]
== END 2022-09-08 15:50 | disposition home or self-care (01) ==
LOC: DI 15:49
PROVIDERS: ATTEND Internal Medicine
DX: M17.11 Unilateral primary osteoarthritis, right knee (principal); S83.231A Complex tear of medial meniscus, current injury, right knee, initial encounter; S83.271A Complex tear of lateral meniscus, current injury, right knee, initial encounter; M94.261 Chondromalacia, right knee